=== PATIENT | male | born 1980 | race Hispanic/Latino ===

== ENCOUNTER 2018-09-30 08:20 | Emergency (ER) | payer OTHER ==
[2018-09-30] MEDS ORDERED: HYDROCODONE/APAP 7.5/325 MG TAB ONE (08:42)
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
--- NOTE | 2018-09-30 09:33 | RAD REPORT ---
EXAM DESCRIPTION: RAD - Knee Right 3 View - 09/30/2018 8:59 am CLINICAL HISTORY: Knee pain following trauma COMPARISON: None. FINDINGS: No fracture, dislocation or periosteal reaction.No joint effusion seen. No joint space edin rowing. No foreign body in the soft tissues. IMPRESSION: No acute bone or joint finding. Clinical concerns for internal derangement or occult bony injury could be further assessed with MR im aging.
== END 2018-09-30 09:47 | disposition home or self-care (01) ==
LOC: ER 08:20
DX: M25.561 Pain in right knee (principal); F17.210 Nicotine dependence, cigarettes, uncomplicated
CPT/HCPCS: 99284

== ENCOUNTER 2019-10-07 22:13 | Emergency (ER) | payer OTHER ==
[2019-10-07] MEDS ORDERED: ASPIRIN 325 MG TAB ONE (22:54)
[2019-10-07] MEDS ORDERED: METOPROLOL TAR 50 MG TAB ONE (22:54)
[2019-10-07] MEDS ORDERED: lisinopriL 20 MG TAB ONE (22:55)
[2019-10-07 23:12] LABS: Absolute Lymphocytes (CBC) 2.8 K/uL (0.7-4.9); Basophils % 0.5 % (0-1.3); Hematocrit 51.3 % (39.6-49.0); Lymphocytes % 17.1 % (15.3-44.8); MPV 10.2 fL (7.6-11.3); RBC Red Blood Cell Count 5.12 M/uL (4.33-5.43)
[2019-10-07 23:34] LABS: ALT/SGPT 60 U/L (12-78); Albumin 4.3 g/dL (3.4-5.0); Alkaline Phosphatase 113 U/L (45-117); BUN Blood Urea Nitrogen 9 mg/dL (7-18); Bicarbonate 24 mmol/L (21-32); Bilirubin Direct 0.2 mg/dL (0-0.2); Bilirubin Total 0.7 mg/dL (0.2-1.0); Glucose Level 112 mg/dL (74-106); NT PRO-BNP 65 pg/mL (<125); Sodium Level 139 mmol/L (136-145); Troponin (Emerg Dept Use Only) < 0.02 ng/mL (0.0-0.045)
[2019-10-07 23:35] LABS: AST/SGOT 73 U/L (15-37); Magnesium 2.6 mg/dL (1.8-2.4); Potassium 3.8 mmol/L (3.5-5.1)
[2019-10-08] MEDS ORDERED: CEFTRIAXONE/SWI 1gm 1 GM/10 ML SYR ONE (01:44)
--- NOTE | 2019-10-08 01:44 | ER ---
Nurse's Notes [facility] Name: Colton Kitchen Age: 39 yrs Sex: Male : 1980 Arrival Date: 10/07/2019 Time: 22:16 Bed 13 Private MD: Diagnosis: Chest pain, unspecified;Essential (primary) hypertension;Tobacco abuse counseling;Tobacco use;Elevated white blood cell count Presentation: 10/06 22:35 Chief complaint: Patient states: Med sternal chest pain that began while trying to go lp1 to sleep, states changing positions and pain moved to left side of chest; States pain 4/10 during triage; Denies any other symptoms. Coronavirus screen: Proceed with normal triage. Ebola Screen: No symptoms or risks identified at this time. Initial Sepsis Screen: Does the patient meet any 2 criteria? No. Patient's initial sepsis screen is negative. Does the patient have a suspected source of infection? No. Patient's initial sepsis screen is negative. Risk Assessment: Do you want to hurt yourself or someone else? Patient reports no desire to harm self or others. Onset of symptoms was October 07, 2019. 22:35 Method Of Arrival: Ambulatory lp1 22:35 Acuity: ADRIANNE 3 lp1 Triage Assessment: 23:02 General: Appears in no apparent distress. uncomfortable, Behavior is calm, cooperative. ls4 Pain: Complains of pain in chest Pain currently is 4 out of 10 on a pain scale. Neuro: No deficits noted. Cardiovascular: Reports chest pain, shortness of breath, Denies Capillary refill < 3 seconds Patient's skin is warm and dry. Rhythm is sinus tachycardia Chest pain is described as quality is Parent/caregiver reports patient has had. Respiratory: Denies cough, fevers. GI: No deficits noted. No signs and/or symptoms were reported involving the gastrointestinal system. : No deficits noted. No signs and/or symptoms were reported regarding the genitourinary system. Derm: No deficits noted. Musculoskeletal: No deficits noted. No signs and/or symptoms reported regarding the musculoskeletal system. Historical: - Allergies: 22:39 No Known Allergies; lp1 - Home Meds: 22:39 None [Active]; lp1 - PMHx: 22:39 None; lp1 - PSHx: 22:39 None; lp1 - Immunization history:: Adult Immunizations up to date. - Social history:: Smoking status: Patient reports the use of cigarette tobacco products, smokes one pack cigarettes per day. - Family history:: not pertinent. Screenin:39 Abuse screen: Denies threats or abuse. Denies injuries from another. Nutritional lp1 screening: No deficits noted. Tuberculosis screening: No symptoms or risk factors identified. Fall Risk None identified. Assessment: 23:34 Reassessment: Patient appears in no apparent distress at this time. Patient and/or ls4 family updated on plan of care and expected duration. Pain level reassessed. Patient is alert, oriented x 3, equal unlabored respirations, skin warm/dry/pink. Patient states symptoms have improved. 10/07 00:45 Reassessment: Patient appears in no apparent distress at this time. Patient and/or ca1 family updated on plan of care and expected duration. Pain level reassessed. Patient is alert, oriented x 3, equal unlabored respirations, skin warm/dry/pink. Pain: Denies pain. Pain does not radiate. Pain began Pt states, "it's not really pain but it's tightness when I breathe or when am laying down like this". 01:21 Reassessment: Patient appears in no apparent distress at this time. Patient and/or ca1 family updated on plan of care and expected duration. Pain level reassessed. Patient is alert, oriented x 3, equal unlabored respirations, skin warm/dry/pink. Vital Signs: 10/06 22:35 BP 198 / 102; Pulse 97; Resp 14; Temp 98.2(O); Pulse Ox 97% on R/A; Weight 102.06 kg lp1 (R); Height 5 ft. 10 in. (177.80 cm) (R); Pain 4/10; 23:32 BP 164 / 95; Pulse 92; Resp 19; Pulse Ox 99% on R/A; Pain 3/10; ls4 10/07 00:45 BP 150 / 106; Pulse 84; Resp 16 S; Pulse Ox 98% on R/A; ca1 01:21 BP 131 / 91; Pulse 65; Resp 14 S; Pulse Ox 97% on R/A; ca1 10/06 22:35 Body Mass Index 32.28 (102.06 kg, 177.80 cm) lp1 ED Course: 10/06 22:16 Patient arrived in ED. ag3 22:29 Lobo Pearce MD is Attending Physician. kimberlyn 22:30 No provider procedures requiring assistance completed. Inserted saline lock: 18 gauge ls4 in right antecubital area, using aseptic technique. Blood collected. 22:30 Initial lab(s) drawn, by me, sent to lab. EKG done, by ED staff, reviewed by Celena Berrios RN. 22:38 Triage completed. lp1 22:38 Arm band placed on. lp1 22:40 Patient has correct armband on for positive identification. ekg monitor tech on. Pulse lp1 ox on. NIBP on. 22:40 Patient maintains SpO2 saturation greater than 95% on room air. lp1 22:45 Celena Berrios, RN is Primary Nurse. ls4 22:55 XRAY Chest (1 view) In Process Unspecified. EDMS 23:56 Strep: co sore throat, wbc 16 Sent. ds4 10/07 00:51 Repeat lab(s) drawn. by ED staff, sent to lab. ca1 01:07 Troponin (emerg Dept Use Only): 1245am Sent. ds4 01:42 Son Olivier MD is Referral Physician. kimberlyn 01:48 EKG done, by ED staff, reviewed by Lobo Pearce MD. ds4 02:03 IV discontinued, intact, bleeding controlled, No redness/swelling at site. Pressure ca1 dressing applied. 02:35 Primary Nurse role handed off by Celena Berrios, RN ar5 Administered Medications: 10/06 22:59 Drug: Lopressor (metoprolol TARTRATE) 50 mg Route: PO; ls4 23:00 Follow up: Response: No adverse reaction ls4 22:59 Drug: Lisinopril 20 mg Route: PO; ls4 23:00 Follow up: Response: No adverse reaction ls4 23:00 Drug: Aspirin Chewable Tablet 324 mg Route: PO; ls4 10/07 00:47 Follow up: Response: No adverse reaction ca1 01:42 Drug: Rocephin 1 grams Route: IV; Rate: per protocol; Site: right antecubital; ca1 02:02 Follow up: Response: No adverse reaction; IV Status: Completed infusion ca1 Outcome: 01:43 Discharge ordered by MD. kimberlyn 02:03 Discharged to home ambulatory. ca1 02:03 Condition: stable 02:03 Discharge instructions given to patient, Instructed on discharge instructions, follow up and referral plans. medication usage, Demonstrated understanding of instructions, follow-up care, medications, Prescriptions given X 2. 02:03 Patient left the ED. ca1 02:43 Patient left the ED. lp1 Signatures: Dispatcher [employer] EDLobo Jones MD MD cha Pena, Laura, OLGA RN lp1 [employer] ds4 Marcela Gallegos ag3 Celena Berrios RN RN cata4 Johanne Martin Cheryl, RN RN ca1 Corrections: (The following items were deleted from the chart) 10/06 23:57 23:56 Strep swab sent to lab. ds4 ds4
--- NOTE | 2019-10-08 01:45 | EDPHYS ---
Physician Documentation [facility] Name: Colton Kitchen Age: 39 yrs Sex: Male : 1980 Arrival Date: 10/07/2019 Time: 22:16 Bed 13 Private MD: JOAN Physician Lobo Pearce HPI: 10/06 22:45 This 39 yrs old Male presents to ER via Ambulatory with complaints of Chest kimberlyn Pain. 22:45 The patient or guardian reports chest pain that is located primarily in the substernal kimberlyn area, anterior chest wall, left. The pain does not radiate. Associated signs and symptoms: Pertinent positives: None. The chest pain is described as sharp. Modifying factors: The symptoms are alleviated by nothing. the symptoms are aggravated by nothing. Severity of pain: At its worst the pain was mild in the emergency department the pain is unchanged. The patient has not experienced similar symptoms in the past. The patient has experienced a previous episode, approximately 2 weeks ago. Historical: - Allergies: 22:39 No Known Allergies; lp1 - Home Meds: 22:39 None [Active]; lp1 - PMHx: 22:39 None; lp1 - PSHx: 22:39 None; lp1 - Immunization history:: Adult Immunizations up to date. - Social history:: Smoking status: Patient reports the use of cigarette tobacco products, smokes one pack cigarettes per day. - Family history:: not pertinent. ROS: 22:45 Constitutional: Negative for fever, chills, and weight loss, Eyes: Negative for injury, kimberlyn pain, redness, and discharge, ENT: Negative for injury, pain, and discharge, Neck: Negative for injury, pain, and swelling, Respiratory: Negative for shortness of breath, cough, wheezing, and pleuritic chest pain, Abdomen/GI: Negative for abdominal pain, nausea, vomiting, diarrhea, and constipation, Back: Negative for injury and pain, : Negative for injury, bleeding, discharge, and swelling, MS/Extremity: Negative for injury and deformity, Skin: Negative for injury, rash, and discoloration, Neuro: Negative for headache, weakness, numbness, tingling, and seizure, Psych: Negative for depression, anxiety, suicide ideation, homicidal ideation, and hallucinations, Allergy/Immunology: Negative for hives, rash, and allergies, Endocrine: Negative for neck swelling, polydipsia, polyuria, polyphagia, and marked weight changes, Hematologic/Lymphatic: Negative for swollen nodes, abnormal bleeding, and unusual bruising. 22:45 Cardiovascular: Positive for chest pain. 10/07 00:16 ENT: Positive for sore throat. kimberlyn Neck: Positive for tenderness, shoddy anterior adenopathy. Exam: 10/06 22:45 Constitutional: This is a well developed, well nourished patient who is awake, alert, kimberlyn and in no acute distress. Head/Face: Normocephalic, atraumatic. Eyes: Pupils equal round and reactive to light, extra-ocular motions intact. Lids and lashes normal. Conjunctiva and sclera are non-icteric and not injected. Cornea within normal limits. Periorbital areas with no swelling, redness, or edema. ENT: Nares patent. No nasal discharge, no septal abnormalities noted. Tympanic membranes are normal and external auditory canals are clear. Oropharynx with no redness, swelling, or masses, exudates, or evidence of obstruction, uvula midline. Mucous membranes moist. Neck: Trachea midline, no thyromegaly or masses palpated, and no cervical lymphadenopathy. Supple, full range of motion without nuchal rigidity, or vertebral point tenderness. No Meningismus. Chest/axilla: Normal chest wall appearance and motion. Nontender with no deformity. No lesions are appreciated. Cardiovascular: Regular rate and rhythm with a normal S1 and S2. No gallops, murmurs, or rubs. Normal PMI, no JVD. No pulse deficits. Respiratory: Lungs have equal breath sounds bilaterally, clear to auscultation and percussion. No rales, rhonchi or wheezes noted. No increased work of breathing, no retractions or nasal flaring. Abdomen/GI: Soft, non-tender, with normal bowel sounds. No distension or tympany. No guarding or rebound. No evidence of tenderness throughout. Back: No spinal tenderness. No costovertebral tenderness. Full range of motion. Male : Normal genitalia with no discharge or lesions. Skin: Warm, dry with normal turgor. Normal color with no rashes, no lesions, and no evidence of cellulitis. MS/ Extremity: Pulses equal, no cyanosis. Neurovascular intact. Full, normal range of motion. Neuro: Awake and alert, GCS 15, oriented to person, place, time, and situation. Cranial nerves II-XII grossly intact. Motor strength 5/5 in all extremities. Sensory grossly intact. Cerebellar exam normal. Normal gait. Psych: Awake, alert, with orientation to person, place and time. Behavior, mood, and affect are within normal limits. Musculoskeletal/extremity: DVT Exam: No signs of deep vein thrombosis. no pain, no swelling, no tenderness, negative Homans' sign noted on exam, no appreciated bluish discoloration, no erythema, no increased warmth. 10/07 00:17 ENT: Posterior pharynx: Airway: normal, no evidence of obstruction, Tonsils: kimberlyn bilaterally enlarged, with erythema, Uvula: normal, midline, non-edematous, no erythema, swelling, is not appreciated, erythema, is not appreciated, exudate, is not appreciated, peritonsillar mass, is not appreciated, pooling of secretions, is not appreciated. 01:45 ECG was reviewed by the Attending Physician. [facility] 01:46 ECG was reviewed by the Attending Physician. [facility] Vital Signs: 10/06 22:35 BP 198 / 102; Pulse 97; Resp 14; Temp 98.2(O); Pulse Ox 97% on R/A; Weight 102.06 kg lp1 (R); Height 5 ft. 10 in. (177.80 cm) (R); Pain 4/10; 23:32 BP 164 / 95; Pulse 92; Resp 19; Pulse Ox 99% on R/A; Pain 3/10; ls4 10/07 00:45 BP 150 / 106; Pulse 84; Resp 16 S; Pulse Ox 98% on R/A; ca1 01:21 BP 131 / 91; Pulse 65; Resp 14 S; Pulse Ox 97% on R/A; ca1 10/06 22:35 Body Mass Index 32.28 (102.06 kg, 177.80 cm) lp1 MDM: 10/06 22:29 Patient medically screened. [facility] 22:47 Differential diagnosis: coronary artery disease chest wall pain, congestive heart kimberlyn failure costochondritis, esophagitis, gastroesophageal reflux disease (GERD), hiatal hernia, stable angina, unstable angina. 22:48 Data reviewed: vital signs, nurses notes, lab test result(s), EKG, radiologic studies, kimberlyn plain films. 22:48 HEART Score: History: Slightly Suspicious (0), ECG: Normal (0), Age: < or = 45 years kimberlyn (0), Risk Factors: 1 or 2 risk factors (1), [Hypertension] [Active Smoker]. 22:49 Data interpreted: vehicle monitor technician: rate is 97 beats/min, Pulse oximetry: on room air is kimberlyn 97 %. Test interpretation: by ED physician or midlevel provider: ECG, plain radiologic studies. 10/07 00:13 RUBEN Risk Score: TOTAL SCORE = 0. kimberlyn 01:37 The patient's pulmonary embolism risk score was calculated as follows: Total Score: 0-2 kimberlyn points. This patient was found to be at low risk for a pulmonary embolism by using the Well's assessment criteria. Counseling: I had a detailed discussion with the patient and/or guardian regarding: the historical points, exam findings, and any diagnostic results supporting the discharge/admit diagnosis, the presence of at least one elevated blood pressure reading (>120/80) during this emergency department visit, lab results, radiology results, the need for outpatient follow up, smoking cessation. Medication response: asa, lopressor,lisinopril all given , bp improved. Response to treatment: the patient's symptoms have resolved after treatment, the patient's condition has returned to base line, the patient is now symptom free. ED course: discussed plan with patient, agrees to take meds, stop smoking and drinking monsters and to follow up with dr olivier. pt will return to er if symptoms return. 02:38 ED course: aumentin 875mg po bid for red , tender throat #14. [facility] 10/06 22:44 Order name: Basic Metabolic Panel; Complete Time: 23:41 [facility] 10/06 22:44 Order name: CBC with Diff; Complete Time: 23:41 [facility] 10/06 22:44 Order name: LFT's; Complete Time: 23:41 [facility] 10/06 22:44 Order name: Magnesium; Complete Time: 23:41 [facility] 10/06 22:44 Order name: NT PRO-BNP; Complete Time: 23:41 [facility] 10/06 22:44 Order name: Troponin (emerg Dept Use Only); Complete Time: 23:41 [facility] 10/06 22:44 Order name: XRAY Chest (1 view) [facility] 10/06 23:42 Order name: Strep: co sore throat, wbc 16; Complete Time: 01:15 [facility] 10/06 23:45 Order name: Troponin (emerg Dept Use Only): 1245am [facility] 10/07 00:40 Order name: Throat Culture [facility] 10/06 22:44 Order name: EKG; Complete Time: 22:45 [facility] 10/06 22:44 Order name: Cardiac monitoring; Complete Time: 23:01 [facility] 10/06 22:44 Order name: EKG - Nurse/Tech; Complete Time: 23:01 [facility] 10/06 22:44 Order name: IV Saline Lock; Complete Time: 23:01 [facility] 10/06 22:44 Order name: Labs collected and sent; Complete Time: 23:02 [facility] 10/06 22:44 Order name: O2 Per Protocol; Complete Time: 23:02 [facility] 10/06 22:44 Order name: O2 Sat Monitoring; Complete Time: 23:02 [facility] 10/07 01:37 Order name: EKG; Complete Time: 01:37 [facility] 10/07 01:37 Order name: EKG - Nurse/Tech; Complete Time: 01:41 [facility] EC:45 Rate is 96 beats/min. Rhythm is regular. QRS [place] is Normal. NE interval is normal. QRS kimberlyn interval is normal. QT interval is normal. No Q waves. T waves are Normal. No ST changes noted. Clinical impression: Normal ECG. Interpreted by me. Reviewed by me. 01:46 Rate is 64 beats/min. Rhythm is regular. QRS [place]tey is Normal. NE interval is normal. QRS kimberlyn interval is normal. QT interval is normal. No Q waves. T waves are Normal. No ST changes noted. Clinical impression: Normal ECG. Interpreted by me. Reviewed by me. Administered Medications: 10/06 22:59 Drug: Lopressor (metoprolol TARTRATE) 50 mg Route: PO; ls4 23:00 Follow up: Response: No adverse reaction ls4 22:59 Drug: Lisinopril 20 mg Route: PO; ls4 23:00 Follow up: Response: No adverse reaction ls4 23:00 Drug: Aspirin Chewable Tablet 324 mg Route: PO; ls4 10/07 00:47 Follow up: Response: No adverse reaction ca1 01:42 Drug: Rocephin 1 grams Route: IV; Rate: per protocol; Site: right antecubital; ca1 02:02 Follow up: Response: No adverse reaction; IV Status: Completed infusion ca1 Disposition: 10/08/19 01:43 Discharged to Home. Impression: Chest pain, unspecified, Essential (primary) hypertension, Tobacco abuse counseling, Tobacco use, Elevated white blood cell count. - Condition is Stable. - Discharge Instructions: Nonspecific Chest Pain, Hypertension, Steps to Quit Smoking, Smoking Hazards, Nonspecific Chest Pain, Sowi-ak-Uidr, Hypertension, Fonb-aw-[id number], How to Take Your Blood Pressure, Bnrp-[id number], Aspirin and Your Heart, Managing Your Hypertension. - Prescriptions for Toprol XL 50 mg Oral Tablet - take 1 tablet by ORAL route once daily; 20 tablet. Lisinopril 10 mg Oral Tablet - take 1 tablet by ORAL route once daily; 20 tablet. Augmentin 875- 125 mg Oral Tablet - take 1 tablet by ORAL route every 12 hours for 7 days; 14 tablet. - Medication Reconciliation Form, Thank You Letter, Antibiotic Education, Prescription Opioid Use form. - Follow up: Private Physician; When: 2 - 3 days; Reason: Recheck today's complaints, Continuance of care, Re-evaluation by your physician. Follow up: Son Olivier MD; When: 2 - 3 days; Reason: Recheck today's complaints, Re-evaluation by your physician. - Problem is new. - Symptoms have improved. Signatures: Dispatcher [employer] EDLobo Jones MD MD cha Pena, Laura, RN RN lp1 Celena Berrios RN RN ls4 Charlene Kaba RN RN ca1 Corrections: (The following items were deleted from the chart) 02:03 01:43 10/08/2019 01:43 Discharged to Home. Impression: Chest pain, unspecified; ca1 Essential (primary) hypertension; Tobacco abuse counseling; Tobacco use. Condition is Stable. Forms are Medication Reconciliation Form, Thank You Letter, Antibiotic Education, Prescription Opioid Use. Follow up: Private Physician; When: 2 - 3 days; Reason: Recheck today's complaints, Continuance of care, Re-evaluation by your physician. Follow up: Son Olivier; When: 2 - 3 days; Reason: Recheck today's complaints, Re-evaluation by your physician. Problem is new. Symptoms have improved. kimberlyn 02:36 02:03 10/08/2019 01:43 Discharged to Home. Impression: Chest pain, unspecified; kimberlyn Essential (primary) hypertension; Tobacco abuse counseling; Tobacco use. Condition is Stable. Discharge Instructions: Nonspecific Chest Pain, Hypertension, Steps to Quit Smoking, Smoking Hazards, Nonspecific Chest Pain, [id number]-[id number], Hypertension, Ppyw-dn-Dgtu, How to Take Your Blood Pressure, Pbtf-pn-Silj, Aspirin and Your Heart, Managing Your Hypertension. Prescriptions for Toprol XL 50 mg Oral Tablet - take 1 tablet by ORAL route once daily; 20 tablet, Lisinopril 10 mg Oral Tablet - take 1 tablet by ORAL route once daily; 20 tablet. and Forms are Medication Reconciliation Form, Thank You Letter, Antibiotic Education, Prescription Opioid Use. Follow up: Private Physician; When: 2 - 3 days; Reason: Recheck today's complaints, Continuance of care, Re-evaluation by your physician. Follow up: Son Olivier; When: 2 - 3 days; Reason: Recheck today's complaints, Re-evaluation by your physician. Problem is new. Symptoms have improved. ca1 02:43 02:36 10/08/2019 01:43 Discharged to Home. Impression: Chest pain, unspecified; lp1 Essential (primary) hypertension; Tobacco abuse counseling; Tobacco use; Elevated white blood cell count. Condition is Stable. Discharge Instructions: Nonspecific Chest Pain, Hypertension, Steps to Quit Smoking, Smoking Hazards, Nonspecific Chest Pain, Wmsf-[id number], Hypertension, Ombx-mx-[id number], How to Take Your Blood Pressure, Ljmy-ki-Qokh, Aspirin and Your Heart, Managing Your Hypertension. Prescriptions for Toprol XL 50 mg Oral Tablet - take 1 tablet by ORAL route once daily; 20 tablet, Lisinopril 10 mg Oral Tablet - take 1 tablet by ORAL route once daily; 20 tablet. and Forms are Medication Reconciliation Form, Thank You Letter, Antibiotic Education, Prescription Opioid Use. Follow up: Private Physician; When: 2 - 3 days; Reason: Recheck today's complaints, Continuance of care, Re-evaluation by your physician. Follow up: Son Olivier; When: 2 - 3 days; Reason: Recheck today's complaints, Re-evaluation by your physician. Problem is new. Symptoms have improved. kimberlyn
[2019-10-08 02:11] VITALS: TEMP 98.2
[2019-10-08 02:15] VITALS: BP 131/91; O2SAT 97
--- NOTE | 2019-10-08 08:32 | RAD REPORT ---
EXAM DESCRIPTION: RAD - Chest Single View - 10/07/2019 10:55 pm CLINICAL HISTORY: CHEST PAIN Chest pain. COMPARISON: No comparisons FINDINGS: Portable technique limits examination quality. The lungs are grossly clear. The heart is upper limit of normal in size. No displaced fractures. IMPRESSION: No acute intrathoracic process suspected.
--- NOTE | 2019-10-08 18:07 | EKG ---
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
--- NOTE | 2019-10-08 18:07 | EKG ---
Test Date: 2019-10-08 Test Time: 01:46:32 Log Data Technician: SITA MEASUREMENT RESULTS: Intervals: Rate: 64 AL: 142 QRSD: 86 QT: 436 QTc: 449 [place]: P: 18 AL: 142 QRS: 32 T: 45 INTERPRETIVE STATEMENTS: Normal sinus rhythm Normal ECG Compared to ECG 10/07/2019 22:31:19 No significant changes Electronically Signed On 10-08-19 18:06:25 CDT by Son Olivier
== END 2019-10-08 02:43 | disposition home or self-care (01) ==
LOC: ER 22:13
DX: R07.9 Chest pain, unspecified (principal); I10 Essential (primary) hypertension; D72.829 Elevated white blood cell count, unspecified; Z71.6 Tobacco abuse counseling
CPT/HCPCS: 96365; 93005 ×2; 87070; 85025; 80048; 36415; 83735; 80076; 87081; 84484 ×2; 83880; 71045; 99285; J0696